=== PATIENT | male | born 1975 | race Caucasian/White ===

== ENCOUNTER 2020-08-18 12:18 | Emergency (ER) | payer OTHER, SELFPAY ==
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
[2020-08-18 12:26] VITALS: BP 153/82; PULSE 78; RESP 20; TEMP 36.8; O2SAT 98
== END 2020-08-18 12:59 | disposition home or self-care (01) ==
PROVIDERS: Emergency Provider Nurse Practitioner Family
DX: S60.221A Contusion of right hand, initial encounter (principal); W22.8XXA Striking against or struck by other objects, initial encounter
CPT/HCPCS: 73130; 99213; G0463

== ENCOUNTER 2020-12-19 09:17 | Emergency (ER) | payer SELFPAY ==
[2020-12-19 09:24] VITALS: BP 131/84; PULSE 74; RESP 20; TEMP 37; O2SAT 99
--- NOTE | 2020-12-19 10:04 | ED.DENTAL ---
HPI - Dental/Oral General Chief complaint: Dental/Oral Stated complaint: Toothache Time Seen by Provider: 12/19/20 09:55 Source: patient and RN notes reviewed Mode of arrival: ambulatory Limitations: no limitations History of Present Illness HPI Narrative: Patient presents today complaining of right lower jaw swelling and tooth pain x2.5 days. States he has a tooth that is been broken for some time that just started hurting again. Denies fever, shortness of breath. He does report some mild difficulty swallowing. Currently rates his pain 12/18 and has been taking Tylenol and ibuprofen without relief. MD Complaint: tooth pain Related Data Allergies Allergy/AdvReac Type Severity Reaction Status Date / Time iohexol AdvReac Nausea and Verified 08/18/20 12:34 [From contrast - CT, X-RAY] Vomiting Review of Systems Review of Systems: CONSTITUTIONAL: Denies body aches, fever, chills, or sweats. EYES: Denies visual changes, redness, or discharge. ENT: Denies rhinorrhea, congestion, sore throat, or otalgia.+ Tooth pain CARDIOVASCULAR: Denies chest pain, palpitations, or edema. RESPIRATORY: Denies cough or dyspnea. GASTROINTESTINAL: Denies abdominal pain, nausea, vomiting, or diarrhea. GENITOURINARY: Denies dysuria or hematuria. SKIN: Denies rash, itching, or wounds. MUSCULOSKELETAL: Denies back pain, joint pain, or myalgia. NEUROLOGIC: Denies headache, numbness, tingling, or weakness. PSYCH: Denies depression or anxiety. PMFSH Comments At time of signature, I have reviewed and agree with nursing past medical, surgical, social and family history unless otherwise noted. Please see nursing chart for further information. There is no relevant family history pertinent to the presenting complaint Exam Narrative: GENERAL: Well-appearing, well-nourished, and in no acute distress. HEAD: Normocephalic, atraumatic. EYES: EOMI. No redness or drainage. Conjunctivae normal. ENT: Mucous membranes pink and moist. Nares clear. No rhinorrhea. Throat normal. Tenderness to tooth #29. Lateral portion is broken off with large filling in the center. No sublingual tenderness noted. No sublingual swelling noted. Left lower jawline is mildly swollen. Uvula midline. NECK: Normal AROM. Supple. No lymphadenopathy. CHEST: No respiratory distress. Clear to auscultation. HEART: Regular rate and rhythm. No murmur appreciated. Normal peripheral pulses. EXTREMITIES: Normal range of motion. No edema. SKIN: Warm, dry, no rash. Capillary refill normal. Normal skin turgor. NEURO: No focal deficits. Alert and oriented x3. Gait steady. PSYCH: Normal affect. No signs of depression or anxiety. Course Vital Signs Vital signs: Vital Signs Temperature 98.6 F 12/19/20 09:24 Pulse Rate 74 12/19/20 09:24 Respiratory Rate 20 12/19/20 09:24 Blood Pressure 131/84 12/19/20 09:24 Pulse Oximetry 99 12/19/20 09:24 Temperature 98.6 F 12/19/20 09:24 Pulse Rate 74 12/19/20 09:24 Respiratory Rate 20 12/19/20 09:24 Blood Pressure 131/84 12/19/20 09:24 Pulse Oximetry 99 12/19/20 09:24 Reviewed. Pt has been instructed to follow up with his PCP regarding his elevated blood pressure today. MDM - Dental/Oral Differential Diagnosis Differential diagnosis: Likely gingival abscess, dental caries, toothache, dental abscess and fracture of tooth Critical Care Time Critical Care Time Critical Care Time: No Discharge Plan Discharge Clinical Impression: Dental abscess Patient Disposition: Home, Self-Care Condition: Stable Instructions: Antibiotic Form, Dental Abscess (ED) Additional Instructions: Please take the Augmentin and prednisone as prescribed. Continue Tylenol or ibuprofen at home for pain. Follow-up with a dentist as soon as possible. Go to the ER immediately if symptoms worsen Your blood pressure was elevated above 120/80 today at Urgent Care. This puts you above the threshold for follow up. Please schedule a followup
== END 2020-12-19 10:17 | disposition home or self-care (01) ==
PROVIDERS: Emergency Provider Nurse Practitioner; PCP Nurse Practitioner Family
DX: K04.7 Periapical abscess without sinus (principal); R03.0 Elevated blood-pressure reading, without diagnosis of hypertension
CPT/HCPCS: 99213; G0463

== ENCOUNTER 2024-06-29 12:06 | Emergency (ER) | payer OTHER, BC, SELFPAY ==
--- NOTE | ~2024-06-29 | XR_ITS ---
XR sacrum coccyx min 2V Ordering provider: Kanwal Pantoja NP History: . pinned between equipment in January . Comparison: None. FINDINGS: BONES: Small bony fragment is seen near to the lower coccygeal segment is noted suggestive of a fract ure. CT confirmation advised. Otherwise, No acute fracture or dislocation. JOINTS: The sacroiliac joint spaces are normal. Degenerative changes of the spine. SOFT TISSUES: Normal. IMPRESSION: Highly suggestive bony fragment near to the last segment of the coccyx. CT evaluation advised. Reviewed, dictated and finalized at location A. IMPRESSION: Highly suggestive bony fragment near to the last segment of the coccyx. CT eval uation advised.
[2024-06-29 12:18] VITALS: BP 144/91; PULSE 66; RESP 20; TEMP 36.7; O2SAT 100
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
--- OUTSIDE RECORDS SUMMARY | 2024-06-29 13:42 | XMS_ITS | Clinical Summary ---
Author Organization [employer] [facility] Address [address] [place] [address] Care Team Providers Care Firewall Security Engineer Name Role Phone Unavailable Primary Care Provider Unavailabl e Encounters Date Type Department Care Team Description 06/23/2024 External Device Data [facility] ABSTRACTION Provider, Abstract 05/20/2024 External Device Data [facility] ABSTRACTION Provider, Abstract 05/19/2024 External Device Data [facility] ABSTRACTION Provider, Abstract 05/16/2024 External Device Data [facility] ABSTRACTION Provider, Abstract 05/15/2024 External Device Data [facility] ABSTRACTION Provider, Abstract 05/05/2024 External Device Data [facility] ABSTRACTION Provider, Abstract 04/07/2024 External Device Data [facility] ABSTRACTION Provider, Abstract 04/01/2024 External Device Data [facility] ABSTRACTION Provider, Abstract 04/01/2024 External Device Data [facility] ABSTRACTION Provider, Abstract from Last 3 Months Social History Tobacco Use Types Packs/Day Years Used Date Smoking Tobacco: Never Assessed Sex and Gender Information Value Date Recorded Sex Assigned at Not on file Legal Sex Male 11:11 PM CDT Gender Identity Not on file Sexual Orientation Not on file Plan of Treatment Health Maintenance Due Date Last Done Comments Pre-Diabetes and Diabetes Screening 1975 DTAP/TDAP/TD VACCINES (1 - Tdap) 01/20/1996 HEPATITIS B VACCINES (1 of 3 - 19+ 3-dose series) 01/09 COLORECTAL SCREENING 2022 Colorectal Cancer Screening 2022 FIT-DNA Q 3 years 2022 FIT/FOBT Q 1 year 2022 Flex Sig/CT Colonography Q 5 years 2022 INFLUENZA VACCINE (#1) 2023
--- OUTSIDE RECORDS SUMMARY | 2024-06-29 13:42 | XMS_ITS | Clinical Summary ---
Author Organization [facility] Address [address] [place] [address] Phone Care Team Providers Care Air Support Operations Operator Name Role Phone Mary Jc APRN, CNP Primary Care Provider [phone] Tino Donis MD Unavailable Allergies Active Allergy Reactions Criticality Noted Date Comments Amoxicillin Unknown 10/12/2021 Iodinated Contrast Media Vomiting 07/12/2017 Medications No known medications Family History Medical History Relation Name Comments No Known Problems Daughter 1 No Known Problems Daughter 2 Heart Attack Father Heart Disease Father Heart Disease Half-Sister 1 No Known Problems Half-Sister 2 No Known Problems Maternal Grandfather No Known Problems Maternal Grandmother Neuropathy Mother No Known Problems Paternal Grandfather No Known Problems Paternal Grandmother No Known Problems Son Relation Name Status Comments Daughter 1 Alive Daughter 2 Alive Father Half-Sister 1 Alive Half-Sister 2 Alive Maternal Grandfather Maternal Grandmother Mother Alive Paternal Grandfather Paternal Grandmother Son Alive Social History Tobacco Use Types Packs/Day Years Used Date Smoking Tobacco: Former Cigarettes Smokeless Tobacco: Never Tobacco Cessation:Counseling Given: Not Answered Comments:2021 stop Alcohol Use Standard Drinks/Week Comments No 0 (1 standard drink = 0.6 oz pur e alcohol) Sex and Gender Information Value Date Recorded Sex Assigned at Not on file Legal Sex Male 2:48 PM GENERAL INTERN Gender Identity Not on file Sexual Orientation Not on file Last Filed Vital Signs Vital Sign Reading Time Taken Comments Blood Pressure 122/82 01/15/2024 10:01 AM GENERAL INTERN Pulse 88 01/15/2024 10:01 AM GENERAL INTERN Temperature 36.3 C (97.3 F) 01/15/2024 10:01 AM GENERAL INTERN Respiratory Rate 20 10/12/2021 8:54 AM CDT Oxygen Saturation 98% 01/15/2024 10:01 AM GENERAL INTERN Inhaled Oxygen Concentration - - Weight 102.1 kg (225 lb) 01/15/2024 10:01 AM GENERAL INTERN Height 188 cm (6' 2 ) 01/15/2024 10:01 AM GENERAL INTERN Body Mass Index 28.89 01/15/2024 10:01 AM GENERAL INTERN Plan of Treatment Health Maintenance Due Date Last Done Comments Hepatitis C Virus (HCV) Screening 1975 TdaP Immunization 1975 Hepatitis B Immunization (1 of 3 - 19+ 3-dose series) 01/20/1996 Colonoscopy 2022 Colorectal Cancer Screening 2022 Influenza Immunization (#1) 2023 SARS-COV-2 Immunization ( season) 2023 Respiratory Syncytial Virus (RSV) Immunization (Adult) (1 - 1-dose 75+ series) 01/20/2052 DTaP/Tdap/Td Immunization Discontinued 09/24/2017 Meningococcal Immunization (ACWY) Aged Out No longer eligible based on patient's age to complete this topic Pneumococcal Immunization Combined Aged Out No longer eligible b ased on patient's age to complete this topic Rotavirus Immunization Aged Out No lo nger eligible based on patient's age to complete this topic Insurance [facility] Care Teams Air Support Operations Operator Relationship Specialty Start Date End Date Jc, PURVI Hernandez, MARK [address] RAYA [address] [place] [id number] PCP - General Family Medicine 10/12/21 Tino Donis MD [address] [id number] Consulting Physician General Surgery 01/10/24
--- OUTSIDE RECORDS SUMMARY | 2024-06-29 13:42 | XMS_ITS | Continuity of Care Document ---
Author Organization [facility] Address [address] [place] [address] Phone Care Team Providers Care Bus Inspector Name Role Phone Garrett Suarez MD Unavailable Unavailable Allergies, Adverse Reactions, Alerts Substance Reaction Status Criticality No Known Drug Allergies Other Active No I nformation Medications Medication Instructions Dosage Effective Dates (start - stop) Status Comments DOXEPIN HCL 10MG CAPS 1 TID - Acti ve DELTASONE 5MG TABS 0 DIRECTE - Acti ve JOSÉ MIGUEL 180MG TABS 1 QD - Active RANITIDINE HCL 150MG TABS 1 BID - Active ZYRTEC 10MG TABS 1 QD - Active EPIPEN 0.3MG SYRINGES 1 DIRECTE - A ctive Advance Directives Directive Yes / No Effective Date File Name No Information Encounters Encounter Description Practice Location Reason(s) For Visit Diagnoses Date Provider Providers Copied on Encounter [facility], [address], [place], [place], [id number], [phone] [facility] No Information 1 Erick Tucker. [address], [id number] , [place]. tel: [phone] [facility], [address], [place], [place], [address], tel:[phone] [facility] [address] Erick Tucker. [id number] [place] [address], [id number] , [place]. tel: [phone] [facility], [address], [place], [place], [id number], [place] tel:[phone] [facility] No Information 4 Erick Tucker. [address], [id number] , [place]. tel: [phone] Family History Family Member Type Diagnosis Age At Onset No Information Payers Payer name Insurance type Covered democrat ID Authoriza tion(s) No Information Social History Type Description Quantity Date Captured Comments Sex Male Smoking Status No Information Chief Complaint And Reason For Visit No Information Reason For Referral Reason For Referral No Information History Of Present Illness Encounter Date Complaint History Of Prese nt Illness No Information Functional Status Date Functional Assessmen t No Information Instructions Date Instruction Additional Infor mation No Information Assessments Type Assessment Date No Information Patient Care Teams Name Effective Dates (start - stop) Status Members No Information
--- OUTSIDE RECORDS SUMMARY | 2024-06-29 13:44 | XMS_ITS | Continuity of Care Document ---
Author Organization [facility] Address [address] [place] [address] Phone Care Team Providers Care Aviation Maintenance Technician Name Role Phone Garrett Suarez MD Unavailable [...] Diagnoses Date Provider Providers Copied on Encounter [facility], [address], [place], [place], [id number], [phone] [facility] No Information 1 Erick Tucker. [address], [id number] , [place]. tel: [phone] [facility], [address], [place], [place], [address], tel:[phone] [facility] [address] [address] Erick [address]. [address] [place] [address], [id number] , [place]. tel: [phone] [facility], [address], [place], [place], [id number], [place] tel:[phone] [facility] No Information 4 Erick Tucker. [address], [id number] , [place]. tel: [phone] Family History Family Member Type Diagnosis Age At Onset No Information Payers Payer name Insurance type Covered alliance party ID Authoriza tion(s) No Information Social History [...]
== END 2024-06-29 13:35 | disposition home or self-care (01) ==
PROVIDERS: Emergency Provider Registered Nurse; PCP Nurse Practitioner Family
DX: S32.2XXA Fracture of coccyx, initial encounter for closed fracture (principal); W23.0XXA Caught, crushed, jammed, or pinched between moving objects, initial encounter
CPT/HCPCS: 72220; 99213; G0463